=== PATIENT | female | born 1955 | race Two or more races ===

== ENCOUNTER 2024-03-27 15:03 | Emergency (ER) | payer OTHER ==
[~2024-03-27] VITALS: Ht 154.9 cm; Wt 73.0 kg
[2024-03-27] MEDS ORDERED: ATORVASTATIN CA20 MG (17:03)
[2024-03-27] MEDS ORDERED: KETOROLAC TROMETHAMINE 15 MG VIAL IM STA (17:35)
[2024-03-27] MEDS ORDERED: KETOROLAC TROMETHAMINE 30 MG VIAL ONE (17:50)
[2024-03-27] MEDS ORDERED: RIVAROXABAN 15 MG TABLET PO STA (19:32)
== END 2024-03-27 19:57 | disposition home or self-care (01) ==
LOC: ER 15:04
DX: S73.191A Other sprain of right hip, initial encounter (principal); X58.XXXA Exposure to other specified factors, initial encounter; Y93.89 Activity, other specified; Y92.89 Other specified places as the place of occurrence of the external cause; Y99.8 Other external cause status
CPT/HCPCS: 36415; 73502; 96372; 99283; J1885

== ENCOUNTER 2024-03-28 08:22 | Emergency (ER) | payer OTHER ==
[~2024-03-28] VITALS: Ht 154.9 cm; Wt 72.6 kg
[~2024-03-28 08:22] MED LIST: ATORVASTATIN CA20 MG
== END 2024-03-28 11:44 | disposition home or self-care (01) ==
LOC: ER 08:23
DX: M79.604 Pain in right leg (principal)